=== PATIENT | female | born 1980 | race Caucasian/White ===

== ENCOUNTER 2024-07-14 08:53 | Emergency (ER) | payer OTHER, SELFPAY ==
[2024-07-14 09:01] VITALS: BP 126/82; PULSE 77; RESP 20; TEMP 36.9; O2SAT 96; BMI 38.4
--- NOTE | 2024-07-14 09:21 | ED_ITS ---
HPI - General Adult General Time Seen by Provider: 09:21 Date Seen: 07/14/24 Chief complaint: Headache/Migraine Stated complaint: Right eye issues, and nasty headache right side Time Seen by Provider: 07/14/24 09:19 Source: patient and RN notes reviewed Mode of arrival: ambulatory Limitations: no limitations History of Present Illness HPI narrative: This 44-year-old female is coming into the ER of her own accord with concern of a headache. She is tearful, most definitely upset, states she is worried she is dying on my initial questioning of her. She notes that she saw an eye doctor, was told she had a subconjunctival hematoma. She since last night though has had a right-sided headache. She states she can draw lying basically through the head. There is some neck pain with this. There is likely some photophobia. She does not have a history of headaches or migraines before. Her subconjunctival hematoma is mildly uncomfortable. There is no visual change, no blurry or double vision. She has no loss of coordination of extremities, was ambulatory in here. She does state though that her 2nd and 3rd fingers in her left hand have felt twitchy today. This headache involved last night sometime after 6:00 p.m.. There is no trauma, no fevers or chills. She denies any recent illness with any cough or cold symptoms. She did have COVID about 2 pedrito hs ago. She does not have a personal history of cancer but she has a cousin with a glioblastoma and there is colon cancer. Related Data Home Medications ?Medication ?Instructions ?Recorded ?Confirmed thyroid (pork) 120 mg tablet 120 mg PO DAILY 12/06/22 04/10/24 ([place] Thyroid) thyroid (pork) 30 mg tablet 30 mg PO DAILY 12/06/22 04/10/24 ([place] Thyroid) Allergies Allergy/AdvReac Type Severity Reaction Status Date / Time No Known Drug Allergies Allergy Verified 07/14/24 09:52 Review of Systems Status of ROS: Reports: 6 or more systems reviewed and unremarkable except as noted in History and below [facility] Medical History Staph infection ?B95.8 - Unspecified staphylococcus as the cause of diseases classified elsewhere (ICD-10) Social History Smoking Status: Never smoker Do you use any of these nicotine containing products: None How often do you have a drink containing alcohol: never How often do you have six or more drinks on one occasion: Never AUDIT-C Alcohol total score: 0 Non-prescribed substance use: denies use Exam Const: Vital Signs, click to edit/add: Vital Signs - 24 hr 07/14/24 09:01 07/14/24 11:21 Temperature 98.5 F Pulse Rate [Pulse Oximeter] 77 62 Respiratory Rate 20 18 Blood Pressure [Ri ght Upper Arm] 126/82 121/76 Pulse Oximetry 96 97 Oxygen Delivery Me thod Room Air Room Air This 44yo female is tearful and seems anxious. Pupils are equal round, conjugate gaze. She has a subconjunctival hematoma on the right outer portion. Symmetrical facial function, speech is normal. TMs canals are normal. Neck is supple, no masses or adenopathy. Lungs clear, good air entry, no wheezing or crackles. CV regular rate and rhythm, no murmur. Abdomen is soft, nontender, nondistended, do not feel any masses. Strength is 5/5 and symmetric, patient was ambulatory into the ED of her own accord. I note no twitching or tremors of her extremities. She has normal light touch sensation. Documenting provider has reviewed patient's vital signs: yes Course Course ED Course: This is a 44-year-old female with no history of any concerning headaches with a severe right-sided headache, some right-sided neck pain with this. She is quite distressed about her symptoms. I did review with her that I do not feel the subconjunctival hematoma is indicative of any underlying pathology, they may just have presented together. I do not feel that there is anything further to do for her subconjunctival hematoma other than observation, do agree with eye doctor on that. However, for her headache, did discuss with her that I his certainly can work that up further. We discussed neuro imaging with doing the head CT noncontrast as well as doing the CT angiogram to ensure no dissection or bleeding. She would like to proceed with that. She did drive herself here but can get a ride. We will proceed with basic labs including inflammatory markers. She will be given Benadryl and Reglan to help with pain management of her headache. Will proceed with IV Toradol if needed if we get clearance with her head imaging. Will recheck COVID as headaches with COVID are very well known entity. Reevaluation(s) Time of Reevaluation #1: 10:53 Reevaluation #1: Patient reports she is relaxed. She seems much calmer now. It sounds as if she started to get some anxiety with injection of the Benadryl, did not receive all of that. Still has some headache. Will proceed with Toradol. Have reviewed her CT imaging is not showing any evidence of any tumors, no acute intracranial pathology, no bleeding. We have reviewed that her CBC, comprehensive metabolic panel, C-reactive protein are all normal. Sed rate is still pending at this time. Negative triple viral swab which does include a negative COVID. Time of Reevaluation #2: 11:38 Reevaluation #2: Patient is reporting she is sleepy, reviewed with her that is from medicines we gave her. She is so much more calm right now. Her sed rate has come back normal at 7, discussed that this makes such entities such as temporal arteritis extremely unlikely. I do believe that the subconjunctival hematoma really does not have anything to do with her headache. She states the eye doctor told her that it would get worse before it gets better. We did discuss that if she does need some ibuprofen for her headache that she could take it but that could increase the risk of the extension of the subconjunctival hematoma. She certainly can take Tylenol without any issue. Vital Signs Vital signs: Initial Vital Signs Temperature 98.5 F 07/14/24 09:01 Temperature Source Temporal Artery Scan 07/14/24 09:01 Pulse Rate 77 07/14/24 09:01 Pulse Rhythm Regular 07/14/24 09:01 Respiratory Rate 20 07/14/24 09:01 Blood Pressure 126/82 07/14/24 09:01 Blood Pressure Mean 96 07/14/24 09:01 Blood Pressure Position Supine 07/14/24 09:01 Pulse Oximetry 96 07/14/24 09:01 Oxygen Delivery Method Room Air 07/14/24 09:01 Vital Signs Temperature 98.5 F 07/14/24 09:01 Pulse Rate 77 07/14/24 09:01 Respiratory Rate 20 07/14/24 09:01 Blood Pressure 126/82 07/14/24 09:01 Pulse Oximetry 96 07/14/24 09:01 Oxygen Delivery Method Room Air 07/14/24 09:01 Temperature 98.5 F 07/14/24 09:01 Pulse Rate 62 07/14/24 11:21 Respiratory Rate 18 07/14/24 11:21 Blood Pressure 121/76 07/14/24 11:21 Pulse Oximetry 97 07/14/24 11:21 Oxygen Delivery Method Room Air 07/14/24 11:21 Medications Administered Medications: Discontinued Medications Generic Name Dose Route Start Last Admin Trade Name Freq PRN Reason Stop Dose Admin Diphenhydramine HCl 25 mg 07/14/24 09:30 07/14/24 10:03 Diphenhydramine 50 Mg/Ml Inj IVP 07/14/24 09:31 25 mg ONCE ONE Administration Metoclopramide HCl 10 mg/ 102 mls @ 306 mls/hr 07/14/24 09:30 07/14/24 10:30 Sodium Chloride IVPB 07/14/24 09:31 Infused ONCE ONE Infusion Ketorolac Tromethamine 15 mg 07/14/24 10:53 07/14/24 11:21 Ketorolac 15 Mg/Ml Inj IVP 07/14/24 10:54 15 mg ONCE ONE Administration Medical Decision Making Lab Data Labs: Lab Results 07/14/24 Range/Units 09:42 WBC 5.67 (4.50-11.00) K/uL RBC 4.26 (4.00-5.20) m/uL Hgb 13.1 (12.0-16.0) gm/dL Hct 39.5 (33.0-51.0) % MCV 93 (80-100) fL MCH 31 (26-34) pg MCHC 33 (32-36) gm/dL RDW Coeff of Sara 12.1 (11.5-15.5) % Plt Count 233 (140-440) K/uL Neut % (Auto) 60.7 (42.0-72.0) % Lymph % (Auto) 24.7 (20-44) % [place]idan % (Auto) 6.9 (0.0-11.0) % Eos % (Auto) 6.9 (0.0-7.0) % Baso % (Auto) 0.4 (0.0-3.0) % Neut # (Auto) 3.45 (1.7-7.0) K/uL Lymph # (Auto) 1.40 (0.90-2.90) K/uL Sheridan # (Auto) 0.40 (0.00-0.90) K/UL Eos # (Auto) 0.39 (0.00-0.50) K/uL Baso # (Auto) 0.02 (0.00-0.30) K/uL Abs Immat Gran (auto) 0.02 (0.00-0.30) K/uL Imm/Tot Granulo (auto) 0.4 % ESR 7 (2-20) mm/hr Sodium 137 (135-149) mmol/L Potassium 4.0 (3.6-5.1) mmol/L Chloride 105 (96-114) mmol/L Carbon Dioxide 24 (20-32) mmol/L Anion Gap 8 (7-15) mEq/L BUN 17 (5-24) mg/dL Creatinine 0.6 (0.5-1.5) mg/dL Estimated Creat Clear 102.25 Estimated GFR 113 ml/min Glucose 106 (60-115) mg/dL Lactate 1.8 (0.5-1.9) mmol/L Calcium 9.3 (8.4-10.6) mg/dL C-Reactive Protein < 0.5 L (0.5-1.0) mg/dL SARS-CoV-2 (PCR) Negative SARS-CoV-2 (Negative) Influenza Type A (PCR) Negative PCR FLU A (Negative) Influenza Type B (PCR) Negative PCR FLU B (Negative) RSV (PCR) Negative PCR RSV (Negative) Imaging Data CT scan - head: Attestation: I have reviewed the pertinent imaging results. Radiologist's impression: Patient: MEHDI LOUIE Facility:?[facility] Patient ID:?[id number] Site Patient ID:?[id number]. Site :?1980 Study:?CT-Head WITHOUT-07/14/2024 10:05:32 AM Ordering Physician:?Elliot Ramírez Final Report: Indication: New severe right-sided headache Technique: Volumetric multidetector CT images of the head were obtained without the administration of low osmolar intravenous contrast. Comparison: None available Findings: There is no intra-axial or extra-axial fluid collection. There is no mass effect or midline shift. The ventricles and sulci are normal in size and position for age. There is minimal chronic small vessel disease change within the subcortical white matter. Otherwise, the brain parenchyma is preserved in attenuation and hair-white differentiation. The orbits and their contents are grossly within normal limits. The bony calvarium is grossly intact. There is bubbly secretion within the paranasal sinuses right greater than left with moderate polypoid mucosal thickening. The mastoid air cells are well aerated. Impression: Mild chronic small vessel disease changes of the white matter without acute intracranial abnormality. Please note that all CT scans at this facility use dose modulation, iterative reconstruction, and/or weight-based dosing when appropriate to reduce radiation dose to as low as reasonably achievable. Dictated by Pool Choi MD @ 07/14/2024 10:16:07 AM (Electronic Signature) CT- Other: Attestation: I have reviewed the pertinent imaging results. Radiologist's impression: Patient: MEHDI PUMPBOSTON Facility:?[facility] Patient ID:?[id number] Site Patient ID:?[id number]. Site :?1980 Study:?CT-Neck Angio W/ 95CC ISOVUE 370-07/14/2024 10:06:37 AM Ordering Physician:Darvin Ramírez Preliminary Report: The thoracic aorta is nonaneurysmal. Patent common carotid arteries. The carotid bifurcations are grossly within normal limits. Patent distal internal carotid arteries. Codominant vertebral arteries, patent throughout their lengths. Dictated by Pool Choi MD @ 07/14/2024 10:22:28 AM Read by:?Pool Choi MD @07/14/2024 10:23:59 AM Patient: MEHDI PUMPER Facility:?[facility] Patient ID:?[id number] Site Patient ID:?[id number]. Site :?1980 Study:?CT-Head Angio W/ 95CC ISOVUE 370-07/14/2024 10:07:01 AM Ordering Physician:?Elliot Desiree Preliminary Report: The skull base internal carotid arteries are patent. Patent anterior cerebral and middle cerebral arteries. Codominant vertebral arteries with patent basilar artery. Patent bilateral posterior cerebral arteries with minimal hypoplasia of the P1 segments and patent bilateral posterior communicating arteries. Dictated by Pool Choi MD @ 07/14/2024 10:28:27 AM Read by:?Pool Choi MD @07/14/2024 10:28:29 AM Discharge Plan Discharge Clinical Impression: Headache Qualifiers: Headache type: unspecified Headache chronicity pattern: acute headache Intractability: not intractable Qualified Code(s): R51.9 - Headache, unspecified Subconjunctival hematoma Qualifiers: Laterality: right Qualified Code(s): H11.31 - Conjunctival hemorrhage, right eye Instructions: Acute Headache (ED) Additional Instructions: Recommend going home to rest. Need to drink plenty of fluids to stay hydrated. Can take Tylenol 1000 mg up to 3 times a day for residual headache. It is fine to try some ibuprofen per bottle directions if needed for headache control. It is possible that ibuprofen use could increase the risk of extension of the subconjunctival hematoma. Your head CT imaging and vascular imaging of the head and neck, labs are all reassuring that there is no concerning process going on at this time. Work note for today is provided. Activity Level: Activity as Tolerated Discharge Diet: Regular Prescriptions: No Action thyroid (pork) [[place] Thyroid] 120 mg tablet 120 mg PO DAILY thyroid (pork) [[place] Thyroid] 30 mg tablet 30 mg PO DAILY Follow Up/Referrals: Provider,Not a Local [Primary Care Provider] - Stand Alone Forms: [employer] Info Instructions
--- NOTE | 2024-07-14 09:30 | CRLHL7_ITS ---
For Patients: As a result of the Century Cures Act, medical imaging exams and procedure reports are released immediately into your electronic medical record. You may view this report before your referring provider. If you have questions, please contact your health care provider. Indication: New severe right-sided headache Technique: Volumetric multidetector CT images of the head were obtained without the administration of low osmolar intravenous contrast. Comparison: None available Findings: There is no intra-axial or extra-axial fluid collection. There is no mass effect or midline shift. The ventricles and sulci are normal in size and position for age. There is minimal chronic small vessel disease change within the subcortical white matter. Otherwise, the brain parenchyma is preserved in attenuation and hair-white differentiation. The orbits and their contents are grossly within normal limits. The bony calvarium is grossly intact. There is bubbly secretion within the paranasal sinuses right greater than left with moderate polypoid mucosal thickening. The mastoid air cells are well aerated. Impression: Mild chronic small vessel disease changes of the white matter without acute intracranial abnormality. Please note that all CT scans at this facility use dose modulation, iterative reconstruction, and/or weight-based dosing when appropriate to reduce radiation dose to as low as reasonably achievable. Dictated by Pool Choi MD @ 07/14/2024 10:16:07 AM (Electronically Signed)
--- NOTE | 2024-07-14 09:32 | CRLHL7_ITS ---
For Patients: As a result of the Century Cures Act, medical imaging exams and procedure reports are released immediately into your electronic medical record. You may view this report before your referring provider. If you have questions, please contact your health care provider. CLINICAL HISTORY: Severe right-sided neck pain and headache. TECHNIQUE: Standard helical CT image acquisition through the head following the administration of intravenous contrast was performed. 3D and MIP reconstructions were performed at a separate workstation and permanently archived. COMPARISON: None available. FINDINGS: No intracranial proximal large vessel occlusion or flow-limiting luminal stenosis. No evidence of cerebral aneurysm. No findings to suggest an arterial-venous shunting lesion. The major dural venous sinuses and deep venous system are patent. IMPRESSION: No intracranial proximal large vessel occlusion, flow-limiting luminal stenosis, or cerebral aneurysm. Please note that all CT scans at this facility use dose modulation, iterative reconstruction, and/or weight-based dosing when appropriate to reduce radiation dose to as low as reasonably achievable. Dictated by Ender Sarmiento MD @ 07/14/2024 11:29:00 AM (Electronically Signed)
--- NOTE | 2024-07-14 09:32 | CRLHL7_ITS ---
For Patients: As a result of the Century Cures Act, medical imaging exams and procedure reports are released immediately into your electronic medical record. You may view this report before your referring provider. If you have questions, please contact your health care provider. CLINICAL HISTORY: Right-sided neck pain with severe headache. TECHNIQUE: Standard helical CT image acquisition through the neck was performed after intravenous contrast bolus enhancement. 3D and MIP reconstructions were performed at a separate workstation and permanently archived. COMPARISON: None available. FINDINGS: The origins of the great vessels from the aortic arch are patent. The common carotid arteries are patent. No significant luminal stenoses of the proximal ICAs by NASCET criteria. The more distal cervical segments of the ICAs are patent. The origins and cervical segments of the vertebral arteries are patent. IMPRESSION: Patent cervical arterial vasculature without hemodynamically significant luminal stenosis. Please note that all CT scans at this facility use dose modulation, iterative reconstruction, and/or weight-based dosing when appropriate to reduce radiation dose to as low as reasonably achievable. Dictated by Ender Sarmiento MD @ 07/14/2024 11:26:13 AM (Electronically Signed)
[2024-07-14 09:51] LABS: Basophils Absolute Auto 0.02 K/uL (0.00-0.30); Basophils Percent Auto 0.4 % (0.0-3.0); Eosinophils Absolute Auto 0.39 K/uL (0.00-0.50); Eosinophils Percent Auto 6.9 % (0.0-7.0); Hematocrit 39.5 % (33.0-51.0); Hemoglobin* 13.1 gm/dL (12.0-16.0); Immature Granulocytes Abs Auto 0.02 K/uL (0.00-0.30); Immature Granulocytes Pct Auto 0.4 %; Lymphocytes Percent Auto 24.7 % (20-44); Mean Corpuscular HGB Conc 33 gm/dL (32-36); Mean Corpuscular Hemoglobin 31 pg (26-34); Mean Corpuscular Volume 93 fL (80-100); Monocytes Percent Auto 6.9 % (0.0-11.0); Neutrophils Absolute Auto 3.45 K/uL (1.7-7.0); Neutrophils Percent Auto 60.7 % (42.0-72.0); Platelet Count* 233 K/uL (140-440); RDW Coefficient of Variation % 12.1 % (11.5-15.5); Red Blood Count 4.26 m/uL (4.00-5.20); White Blood Count* 5.67 K/uL (4.50-11.00)
[2024-07-14 09:52] LABS: Lactate* 1.8 mmol/L (0.5-1.9)
[2024-07-14 10:00] LABS: Slide Review Reflex No
[2024-07-14] MEDS: diphenhydrAMINE 50 MG/ML inj 25 MG IVP (10:03)
[2024-07-14] MEDS: METOCLOPRAMIDE HCL 10 MG in 0.9 % SODIUM CHLORIDE 100 ml 100 ML 306 MG IVPB (10:04)
[2024-07-14 10:12] LABS: Chloride* 105 mmol/L (96-114); Sodium* 137 mmol/L (135-149)
[2024-07-14 10:15] LABS: Creatinine* 0.6 mg/dL (0.5-1.5); Est. Creatinine Clearance* 102.25; Estimated Glomerular Filt Rate 113 ml/min
[2024-07-14 10:16] LABS: Anion Gap 8 mEq/L (7-15); Blood Urea Nitrogen* 17 mg/dL (5-24); Calcium* 9.3 mg/dL (8.4-10.6); Carbon Dioxide* 24 mmol/L (20-32); Glucose* 106 mg/dL (60-115)
[2024-07-14 10:23] LABS: C Reactive Protein* < 0.5 mg/dL (0.5-1.0)
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
--- OUTSIDE RECORDS SUMMARY | 2024-07-14 10:24 | XMS_ITS | Clinical Summary ---
Author Organization [facility] Address [place], [place] [address] Care Team Providers Care Web Editor Name Role Phone Clinic, No Pcp Or Primary Care Provider Unavaila ble Allergies Active Allergy Reactions Criticality Noted Date Comments Venom-Honey Bee Rash 01/12/2023 Medications Medication Sig Dispensed Refills Start Date End Date Status EPINEPHrine (EPIPEN) 0.3 mg/0.3 mL (1:1,000) injection Inject 0.3 mg intramuscular one time if needed for Allergic Reaction for up to 1 dose. 1 Each 2 05/24/2014 Active lidocaine 5% (LIDODERM) 5 % patch 11/10/2018 Active ARMOUR THYROID 30 mg tablet TAKE ONE TABLET DAILY ALONG WITH A 120 MG TABLET FOR TOTAL DOSE OF 150 MG PER DAY 10/18/2019 Active thyroid (ARMOUR THYROID) 120 mg tablet Take one tablet daily along with a 30 mg tablet for total dose of 150 mg per day 10/18/2019 Active Active Problems Problem Noted Date Diagnosed Date Unspecified hypothyroidism 04/04/2009 Encounters Date Type Department Care Team Description 05/10/2024 2:10 PM CDT Office Visit [facility] [address] [place] [address] Booker Burger DO Derm Problem (Blister/red on back) 05/10/2024 Travel 05/10/2024 Nurse Triage [facility] [address] [place] [address] [facility] Derm Problem from Last 3 Months Immunizations Name Administration Dates Next Due AMB Influenza, IIV4 PF (=>6 mos Flulaval,Fluzone Fluarix)(Flu Clinic Only) 06/09/2014 Influenza Virus, Unspecified 08/16/2007,08/16/20 07 Influenza, IIV3 (Age >=3 years) 07/07/2015,06/11 Influenza, IIV4 06/17/2021,06/09/2014 Influenza, IIV4 (=>6mos) MDV 07/08/2020 Td (Age >=7 Years) 04/06/1997,02/04/1997 Tdap 11/17/2012 Family History Medical History Relation Name Comments Diabetes Father Cancer-colon Maternal Grandfather colon c ancer Other Maternal Grandmother Multipl e Sclerosis Other Mother rheumatoid arth ritis Psychiatric illness Mother depressi on Diabetes Paternal Grandfather and HIV positive; Heroin user. Alzheimer's disease Paternal Grandmother Diabetes Paternal Uncle 2 Thyroid Disease Sister 1 Grave's Dise ase Other Sister 2 Cerebral Palsy Anesthesia Problem No Family History Blood Disease No Family History Relation Name Status Comments Father Alive Maternal Grandfather Maternal Grandmother Mother Alive Paternal Grandfather Paternal Grandmother Alive Paternal Uncle 1 car acciden t Paternal Uncle 2 Sister 1 Alive Sister 2 Alive Social History Tobacco Use Types Packs/Day Years Used Date Smoking Tobacco: Never Passive Smoke Exposure: Never Smokeless Tobacco: Never Tobacco Cessation:Counseling Given: Not Answered Comments:2007 Quit Alcohol Use Standard Drinks/Week Comments Not Currently 0 (1 standard drink = 0.6 oz pur e alcohol) 3 per month PHQ-2 Answer Date Recorded PHQ-2 Score 0 12/01/2018 Social Connections Answer Date Recorded Do you often feel lonely or isolated from those around you? 0 05/10/2024 Financial Resource Strain Answer Date R ecorded Difficulty of Paying Living Expenses 3 05/10/2024 Difficulty of Paying Living Expenses Not on file 05/10/2024 Food Insecurity Answer Date Recorded Do you worry your food will run out before you are able to buy more? 1 05/10/2024 Transportation Needs Answer Date Record ed Does lack of transportation keep you from medica l appointments? 1 05/10/2024 Does lack of transportation keep you from work, meetings or getting things that you need? 1 05/10/2024 Housing Stability Answer Date Recorded What is your housing situation today? 1 05/10/2024 Sex and Gender Information Value Date Recorded Sex Assigned at Not on file Gender Identity Not on file Sexual Orientation Not on file Obstetrics History Para Term AB IAB SAB Ectopic Multiple Livin g Live Births 2 1 1 1 1 1 Date Outcome GA Total Labor Labor/2nd/3rd Weight Sex Type Anes PTL Tiffanie A1 A5 Name Clin AB 09/27 Term M CS-Un spec Living Royce Last Filed Vital Signs Vital Sign Reading Time Taken Comments Blood Pressure 114/80 05/10/2024 2:19 PM CDT Pulse 78 05/10/2024 2:19 PM CDT Temperature 36.7 ??C (98.1 ??F) 01/14/2023 9:09 AM CD T Respiratory Rate 16 01/14/2023 9:09 AM CDT Oxygen Saturation 96% 05/10/2024 2:19 PM CDT Inhaled Oxygen Concentration - - Weight 95.7 kg (211 lb) 01/12/2023 11:16 AM CDT Height 162.6 cm (5' 4) 01/12/2023 11:16 AM CDT Body Mass Index 36.22 01/12/2023 11:16 AM CDT Plan of Treatment Health Maintenance Due Date Last Done Comments HIV for age 15-65 1994 Hepatitis C screening for age 18-79 1997 Pap test for age 21-65 09/06/2015 5, 09/06/2013, 09/06/2012 [facility] Depression screening for age 12+ 12/02/2019 12/01/2018, 11/24/2016 Tetanus booster 11/17/2022 11/17/2012, 09/1996, 02/04/1997 BMI (ht and wt on same day) for age 18+ 01/13/2024 01/12/2023, 07/24/2019, 01/31/2019, Additional history exists Colonoscopy through age 75 2024 Lipids for age 45-75 2024 11/14/2016, 11/22/19 13 Mammogram for age 45-75 2024 COVID-19 vaccine series ( season) 2024 08/02/2021, 01/10/2021, 12/20/2020 Influenza for age 9-49 05/07/2024 , 07/08/2020, 07/07/2015, Additional history exists Tdap Completed 11/17/2012 Pneumococcal series for age 6-64 Aged Out No longer eligible based on patient's age to complete this topic Procedures Procedure Name Priority Date/Time Associated Diagnosis Comments LIPID PANEL W REFLEX MEASURED LDL Routine 11/14/2016 9:06 AM TOP COLLAR BASTER Lipid screening from Last 3 Months or Most Recently Relevant to Health Maintenance Results * LIPID PANEL W REFLEX MEASURED LDL (11/14/2016 9:06 AM TOP COLLAR BASTER) CHOLESTEROL,TOTAL 120 100 - 199 mg/dL 11/14/2016 9:32 AM TOP COLLAR BASTER [facility] TRIGLYCERIDES 115 <150 mg/dL 11/14/2016 9:32 AM TOP COLLAR BASTER [facility] HDL CHOLESTEROL 59 >40 mg/dL 7 9:32 AM TOP COLLAR BASTER [facility] NON-HDL CHOLESTEROL 61 <145 mg/dl 11/14/2016 9:32 AM TOP COLLAR BASTER [facility] CHOL/HDL RATIO 2.03 <4.50 11/14/2016 9:32 AM TOP COLLAR BASTER [facility] LDL CHOLESTEROL 38 <=130 mg/dL 11/14/2016 9:32 AM TOP COLLAR BASTER [facility] PATIENT STATUS FASTING 11/14/2016 9:32 AM [facility] Blood BLOOD SPECIMEN / Unknown Venipuncture / Unknown 11/14/2016 9:06 AM TOP COLLAR BASTER 11/14/2016 9:06 AM TOP COLLAR BASTER Mee Moya MD CHEMISTRY [facility] [address] [place] [address], from Last 3 Months or Most Recently Relevant to Health Maintenance Care Teams Web Editor Relationship Specialty Start Date End Date Clinic, No Pcp Or . PCP - General 11/15/19
--- OUTSIDE RECORDS SUMMARY | 2024-07-14 10:24 | XMS_ITS | Encounter Summary ---
Author Organization [email or web address] Address [address], [place] [address] Care Team Providers Care Hvac Services Professional Name Role Phone Found, No Pcp MD Primary Care Provider Unavailab le Reason for Visit * Reason Comments Refill ARMOUR THYROID 120 M G tablet [Pharmacy Med Name: THYROID (ARMOUR) 2GR (120MG) TABS] Encounter Details Date Type Department Care Team (Late st Contact Info) Description 06/08/2024 Refill [place] [id number] [place] [address]. [place], [place] [id number] Ryan Zamora MD [address] [place] [address] [id number] Refill (ARMOUR THYROID 120 MG tablet [Pharmacy Med Name: THYROID (ARMOUR) 2GR (120MG) TABS]) Social History Tobacco Use Types Packs/Day Years Used Date Smoking Tobacco: Never Smokeless Tobacco: Never Alcohol Use Standard Drinks/Week Comments Yes 0 (1 standard drink = 0.6 oz pur e alcohol) monthly or less PHQ-2 Answer Date Recorded PHQ-2 Score 0 12/08/2023 Sex and Gender Information Value Date Recorded Sex Assigned at Not on file Gender Identity Not on file Sexual Orientation Not on file documented as of this encounter Nursing Notes * Leonidas Frank Xrwcomm - 06/08/2024 8:43 AM CDT ARMOUR THYROID 120 MG tablet [Pharmacy Med Name: THYROID (ARMOUR) 2GR (120MG) TABS] Hypothyroidism -> The requested strength (120 mg oral tablet) was last ordered on 02/29/2024. The patient is taking 30 mg tab as of 02/29/2024. -> The medication is active at more than one strength (120 mg on 02/29/2024, 30 mg on 02/29/2024). -> Unable to determine if sig has changed, review required. -> An office visit is overdue (performed over 16 months ago, required every 12 months). Last qualifying visit: 02/11/2023 (in [facility] END[facility]OLOGY) Next scheduled visit: 06/08/2024 (in [facility]OLOG[facility]) Last ordered by RYAN ZAMORA: 02/29/2024 (100 days ago) QTY: 90, Refills: 0, Sig: take 1 tablet by mouth every day along with a 30mg tablet (changed) TSH: 3.56 mIU/L on 12/08/2023 [email or web address] Embedded Refills, Reference: [id number], 06/08/2024 8:43:50 AM CDT, Pool: MARU PALACIOS ([id number]) * Leonidas Frank - 06/08/2024 8:43 AM CDT The following lab order(s) may be associated with the following Patient Result Comment (Entered by Ryan Zamora MD at 12/14/2023 7:56 PM): TSH, SENSITIVE This is okay. The T3 is MUCH higher in [facility]our thyroid than the T4 is compared to what our bodies make, so that is reflected in these labs. 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
--- OUTSIDE RECORDS SUMMARY | 2024-07-14 10:24 | XMS_ITS ---
Author Organization [facility] Address [address] [place] [address] Care Team Providers Care Tenter Feeder Name Role Phone System, Provider Not In Primary Care Provider Un available Transplant Episode Kidney Potential Donor [facility] ([place], [place]) - [facility] Referred on 01/05/2024 Marked as Ineligible on 04/27/2024 Reason: Recipient Reason Kidney CoordinatorYvonne Corona RN Phone: N/A Fax: N/A Email: N/A Care Team Name Role Phone Fax Email Yvonne Corona RN Kidney Coordinator N/A N/A N/A Events Pre-Donation Referred: 01/05/2024
--- OUTSIDE RECORDS SUMMARY | 2024-07-14 10:24 | XMS_ITS | Referral Summary ---
Author Organization [facility] Address [address] [place] [address] Care Team Providers Care Medical Collector Name Role Phone System, Provider Not In Primary Care Provider Un available Allergies Active Allergy Reactions Criticality Noted Date Comments Bee Venom Rash Low 01/12/2023 Medications cyclobenzaprine (FLEXERIL) 5 MG tablet Take 5-10 mg by mouth 4 Active thyroid (ARMOUR) 120 MG tablet TAKE 1 TABLET BY MOUTH EVERY DAY ALONG WITH A 30MG TABLET 3 Active thyroid (ARMOUR) 30 MG tablet Take 1 tablet by mouth daily 3 Active ibuprofen (ADVIL/MOTRIN) 200 MG tabletIndication s:S/P hysterectomy Take 4 tablets (800 mg) by mouth every 6 hours as needed for other (mild and/or inflammatory pain) 4 Active acetaminophen (TYLENOL) 325 MG tabletIndication s:S/P hysterectomy Take 3 tablets (975 mg) by mouth every 6 hours as needed for mild pain 4 Active oxyCODONE (ROXICODONE) 5 MG tabletIndication s:S/P hysterectomy Take 1-2 tablets (5-10 mg) by mouth every 4 hours as needed for moderate to severe pain 12 tablet 4 Active Active Problems Problem Noted Date Diagnosed Date Passive suicidal ideations 07/20/2017 Social History Tobacco Use Types Packs/Day Years Used Date Smoking Tobacco: Never Smokeless Tobacco: Never Alcohol Use Standard Drinks/Week Comments Yes 0 (1 standard drink = 0.6 oz pur e alcohol) rare Adolescent Education Answer Date Record ed Getting School Help Needed Not on file 12/20 Comments Unknown Sex and Gender Information Value Date Recorded Sex Assigned at Not on file Legal Sex Female 4:49 AM MILLINERY COPYIST Gender Identity Not on file Sexual Orientation Not on file Last Filed Vital Signs Vital Sign Reading Time Taken Comments Blood Pressure 102/70 12/21/2023 12:02 PM CDT Pulse 74 12/21/2023 12:02 PM CDT Temperature 35.9 ??C (96.6 ??F) 12/21/2023 12:02 PM C DT Respiratory Rate 10 12/21/2023 12:02 PM CDT Oxygen Saturation 98% 12/21/2023 12:02 PM CDT Inhaled Oxygen Concentration - - Weight 98.5 kg (217 lb 1.6 oz) 12/21/2023 5:49 A M CDT Height 162.5 cm (5' 3.98) 07/20/2017 7:00 PM CS T Body Mass Index 37.29 07/20/2017 7:00 PM MILLINERY COPYIST Plan of Treatment Not on file Procedures Procedure Name Priority Date/Time Associated Diagnosis Comments COMPREHENSIVE METABOLIC PANEL Routine 07/21/2017 7:51 AM MILLINERY COPYIST TSH WITH FREE T4 REFLEX Routine 07/21/2017 7:51 AM MILLINERY COPYIST LIPID REFLEX TO DIRECT LDL PANEL Routine 07/21/2017 7:51 AM MILLINERY COPYIST from Last 3 Months or Most Recently Relevant to Health Maintenance Results * (ABNORMAL) TSH with free T4 reflex (07/21/2017 7:51 AM MILLINERY COPYIST) TSH 5.82(H) 0.40 - 4.00 mU/L 07/21/2017 9:00 AM MILLINERY COPYIST [facility] Blood specimen (specimen) 07/21/2017 7:51 AM MILLINERY COPYIST 07/21/2017 7:55 AM MILLINERY COPYIST us Rose Garsia APRN HOUSE PRINCIPAL LAB - BLOOD ORDER KRYSTAL Final Result [facility] [address] [place] [address] * Lipid panel reflex to direct LDL (07/21/2017 7:51 AM MILLINERY COPYIST) Cholesterol 137 <200 mg/dL 07/21/2017 9:00 AM MILLINERY COPYIST [facility] Triglycerides 97 <150 mg/dL 07/21/2017 9:00 AM [facility] HDL Cholesterol 76 >49 mg/dL 7 9:00 AM [facility] LDL Cholesterol Calculated 42 <100 mg/dL 07/21/2017 9:00 AM [facility] Comment:Desirable: <100 mg/d l Non HDL Cholesterol 61 <130 mg/dL 07/21/2017 9:00 AM [facility] Blood specimen (specimen) 07/21/2017 7:51 AM MILLINERY COPYIST 07/21/2017 7:55 AM [facility] us Rose Garsia WAITER/WAITRESS COUNTER HOUSE PRINCIPAL LAB - BLOOD ORDER KRYSTAL Final Result Performing Organization Address City/State/[facility] Co de Phone Number [facility] [address] [place] [address] * (ABNORMAL) Comprehensive metabolic panel (07/21/2017 7:51 AM MILLINERY COPYIST) Sodium 139 133 - 144 mmol/L 07/21/2017 9:00 AM [facility] Potassium 4.2 3.4 - 5.3 mmol/L 07/21/2017 9:00 AM [facility] Chloride 107 94 - 109 mmol/L 07/21/2017 9:00 AM [facility] Carbon Dioxide 23 20 - 32 mmol/L 07/21/2017 9:00 AM [facility] Anion Gap 9 3 - 14 mmol/L 07/21/2017 9:00 AM [facility] Glucose 126(H) 70 - 99 mg/dL 07/21/2017 9:00 AM [facility] Urea Nitrogen 12 7 - 30 mg/dL 07/21/2017 9:00 AM [facility] Creatinine 0.75 0.52 - 1.04 mg/dL 07/21/2017 9:00 AM [facility] GFR Estimate 86 >60 mL/min/1.7 m2 07/21/2017 9:00 AM [facility] Comment:Non GFR Calc GFR Estimate If Black >90 >60 mL/min/1.7 m2 07/21/2017 9:00 AM [facility] Comment: GFR Calc Calcium 8.6 8.5 - 10.1 mg/dL 07/21/2017 9:00 AM [facility] Bilirubin Total 0.4 0.2 - 1.3 mg/dL 07/21/2017 9:00 AM [facility] Albumin 3.6 3.4 - 5.0 g/dL 07/21/2017 9:00 AM [facility] Protein Total 7.3 6.8 - 8.8 g/dL 07/21/2017 9:00 AM [facility] Alkaline Phosphatase 39(L) 40 - 150 U/L 07/21/2017 9:00 AM [facility] ALT 23 0 - 50 U/L 07/21/2017 9:00 AM [facility] AST 15 0 - 45 U/L 07/21/2017 9:00 AM [facility] Blood specimen (specimen) 07/21/2017 7:51 AM MILLINERY COPYIST 07/21/2017 7:55 AM [facility] Rose Garsia APRN HOUSE PRINCIPAL LAB - BLOOD ORDER KRYSTAL Final Result Performing Organization Address City/State/[facility] Co de Phone Number [facility] [address] [place] [address] from Last 3 Months or Most Recently Relevant to Health Maintenance Insurance [place] [employer]CIAL [facility] COMMERCIAL Advance Directives For more information, please contact: [phone] * Full Code (Latest Code Status on File) Date Activated Date Inactivated Comments 07/21/2017 9:45 AM 12/21/2023 5:37 AM * Full Code Date Activated Date Inactivated Comments 07/20/2017 8:30 PM 07/21/2017 9:45 AM Care Teams Medical Collector Relationship Specialty Start Date End Date System, Provider Not In PCP - General Clinic 01/05/24
--- OUTSIDE RECORDS SUMMARY | 2024-07-14 10:24 | XMS_ITS | Clinical Summary ---
Author Organization [facility] Address [address] [place] [address] Care Team Providers Care Spacecraft Systems Engineer Name Role Phone System, Provider Not In [...] Date Diagnosed Date Passive suicidal ideations 07/20/2017 Family History Medical History Relation Comments Substance Abuse Father Substance Abuse Mother Relation Status Comments Father Mother Social History Tobacco Use Types Packs/Day Years [...] on file Legal Sex Female 4:49 AM MORTAR MAKER Gender Identity Not on file Sexual Orientation [...] Body Mass Index 37.29 07/20/2017 7:00 PM MORTAR MAKER Plan of Treatment Health Maintenance Due Date Last Done Comments ADVANCE CARE PLANNING 1979 ANNUAL REVIEW OF HM ORDERS 1979 CT COLONOGRAPHY 1979 FIT 1979 FLEX SIG 1979 sDNA (Cologuard) 1979 COLONOSCOPY 1989 COLORECTAL CANCER SCREENING 1989 HIV SCREENING 1994 HEPATITIS C SCREENING 1997 HEPATITIS B IMMUNIZATION (1 of 3 - 19+ 3-dose series) 1998 TSH W/FREE T4 REFLEX 07/21/2018 07/21/2017, 07/21/20 17 GLUCOSE 07/21/2020 07/21/2017 YEARLY PREVENTIVE VISIT 06/17/2022 06/17/20 21, 05/25/2019, 05/06/2018, Additional history exists LIPID 07/21/2022 07/21/2017 PHQ-2 (once per calendar year) 2023 COVID-19 Vaccine ( season) 2024 08/02/2021, 01/10/2021, 12/20/2020 INFLUENZA VACCINE (#1) 2024 , 07/08/2020, 07/07/2015, Additional history exists MAMMO SCREENING 08/24/2025 08/24/2023, 12/0 05/2022, 06/23/2021, Additional history exists PAP 11/02/2026 11/02/2023, 11/02/2023 DTAP/TDAP/TD IMMUNIZATION (5 - Td or Tdap) 09/05/2033 09/05/2023, 11/17/2012, 04/06/1997, Additional history exists RSV VACCINE (1 - 1-dose 75+ series) 2054 HPV IMMUNIZATION Aged Out No longer e ligible based on patient's age to complete this topic MENINGITIS IMMUNIZATION Aged Out No l onger eligible based on patient's age to complete this topic Pneumococcal Vaccine: Pediatrics (0 to 5 Years) and At-Risk Patients (6 to 64 Years) Aged Out No longer eligible based on patient's age to complete this topic RSV MONOCLONAL ANTIBODY Aged Out No l onger eligible based on patient's age to complete this topic Procedures Procedure Name Priority Date/Time Associated Diagnosis Comments COMPREHENSIVE METABOLIC PANEL Routine 07/21/2017 7:51 AM MORTAR MAKER TSH WITH FREE T4 REFLEX Routine 07/21/2017 7:51 AM MORTAR MAKER LIPID REFLEX TO DIRECT LDL PANEL Routine 07/21/2017 7:51 AM MORTAR MAKER from Last 3 Months or Most Recently Relevant to Health Maintenance Results * (ABNORMAL) TSH with free T4 reflex (07/21/2017 7:51 AM MORTAR MAKER) TSH 5.82(H) 0.40 - 4.00 mU/L 07/21/2017 9:00 AM MORTAR MAKER [facility] Blood specimen (specimen) 07/21/2017 7:51 AM MORTAR MAKER 07/21/2017 7:55 AM MORTAR MAKER us Rose Garsia APRN AIR SUPPORT CONTROL OFFICER LAB - BLOOD ORDER KRYSTAL Final Result [facility] [address] [place] [address] * Lipid panel reflex to direct LDL (07/21/2017 7:51 AM MORTAR MAKER) Cholesterol 137 <200 mg/dL 07/21/2017 9:00 AM MORTAR MAKER [facility] Triglycerides 97 <150 mg/dL 07/21/2017 9:00 AM [facility] HDL Cholesterol 76 >49 mg/dL 7 9:00 AM [facility] LDL Cholesterol Calculated 42 <100 mg/dL 07/21/2017 9:00 AM [facility] Comment:Desirable: <100 mg/ dl Non HDL Cholesterol 61 <130 mg/dL 07/21/2017 9:00 AM [facility] Blood specimen (specimen) 07/21/2017 7:51 AM MORTAR MAKER 07/21/2017 7:55 AM [facility] us Rose Garsia GERONTOLOGICAL NURSE PRACTITIONER AIR SUPPORT CONTROL OFFICER LAB - BLOOD ORDER KRYSTAL Final Result Performing Organization Address City/State/[facility] Co de Phone Number [facility] [address] [place] [address] * (ABNORMAL) Comprehensive metabolic panel (07/21/2017 7:51 AM MORTAR MAKER) Sodium 139 133 - 144 mmol/L 07/21/2017 [...] CENTER Blood specimen (specimen) 07/21/2017 7:51 AM MORTAR MAKER 07/21/2017 7:55 AM MORTAR MAKER Rose Garsia APRN AIR SUPPORT CONTROL OFFICER LAB - BLOOD ORDER KRYSTAL Final Result Performing Organization Address City/State/[facility] de Phone Number [facility] [address] [place] [address] from Last 3 Months or Most Recently Relevant to Health Maintenance Insurance [employer] COMMERCIAL [facility] COMMERCIAL Advance Directives For more information, please contact: [phone] * Full Code (Latest Code Status on File) Date Activated Date Inactivated Comments 07/21/2017 9:45 AM 12/21/2023 5:37 AM * Full Code Date Activated Date Inactivated Comments 07/20/2017 8:30 PM 07/21/2017 9:45 AM Care Teams Spacecraft Systems Engineer Relationship Specialty Start Date End Date System, Provider Not In PCP - General Clinic 01/05/24
--- OUTSIDE RECORDS SUMMARY | 2024-07-14 10:24 | XMS_ITS | Encounter Summary ---
Author Organization [facility] Address [address] [place] [id number] Care Team Providers Care Compensator Worker Name Role Phone No Ref-Primary, Physician Primary Care Provider System, Provider Not In Primary Care Provider Un available Reason for Visit * Reason Onset Date Comments MH/CD Inpatient 07/20/2017 Encounter Details Date Type Department Care Team ([facility] st Contact Info) Description 07/20/2017 Telephone [facility] Behavioral Health Intake [address] [place] [address] Generic, Behavioral Intake, MH/CD Inpatient Social History Tobacco Use Types Packs/Day Years Used Date Smoking Tobacco: Never Assessed Comments Unknown Sex and Gender Information Value Date Recorded Sex Assigned at Not on file Legal Sex Female 4:49 AM NURSING DEPARTMENT CHAIRPERSON Gender Identity Not on file Sexual Orientation Not on file documented as of this encounter Miscellaneous Notes * Telephone Encounter - Chaya Barger - 07/20/2017 5:41 PM CST S. Received clinical from DEC capacity planning engineer at [facility] ED regarding 37 yo female with anxiety and depression B. Pt presents to ED with increasing anxiety and depression. Pt reports she is going through a divorce, two friends recently and 's day was a reminder of a friend who while in service. Pt had taken some days off from work and returned today but was unable to make it through the shift and went home. Pt reports she has had decreased appetite and difficulty sleeping. Pt reports passive SI and has thoughts of overdose or cutting but no specific plan. No reported medical or CD issues. A. Voluntary R. 10 / [place] ING DEPARTMENT CHAIRPERSON * Telephone Encounter - Adonay, Rachna - 07/20/2017 2:58 PM CST S. Received clinical from DEC capacity planning engineer at [facility] ED regarding 37 yo female with anxiety and depression B. Pt presents to ED with increasing anxiety and depression. Pt reports she is going through a divorce, two friends recently and 's day was a reminder of a friend who while in service. Pt had taken some days off from work and returned today but was unable to make it through the shift and went home. Pt reports she has had decreased appetite and difficulty sleeping. Pt reports passive SI and has thoughts of overdose or cutting but no specific plan. No reported medical or CD issues. A. Voluntary R. ING DEPARTMENT CHAIRPERSON documented in this encounter Plan of Treatment Not on file documented as of this encounter Visit Diagnoses Not on filedocumented in this encounter Care Teams Compensator Worker Relationship Specialty Start Date End Date No Ref-Primary, Physician PCP - General 07/20/17 01/04/24 System, Provider Not In PCP - General Clinic 01/05/24 documented as of this encounter
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
--- NOTE | 2024-07-14 10:32 | ED.NURSE ---
Pt reports feeling anxious with IV administration of Reglan, pt requested IV to be discontinued.
[2024-07-14 10:33] LABS: PCR FLU A Negative PCR FLU A (Negative); PCR FLU B Negative PCR FLU B (Negative); PCR RSV Negative PCR RSV (Negative); SARS PCR* Negative SARS-CoV-2 (Negative)
[2024-07-14 11:06] LABS: Erythrocyte SedimentationRate* 7 mm/hr (2-20)
[2024-07-14 11:21] VITALS: BP 121/76; PULSE 62; RESP 18; O2SAT 97
[2024-07-14] MEDS: KETOROLAC 15 MG/ML inj IVP (11:21)
== END 2024-07-14 11:54 | disposition home or self-care (01) ==
LOC: ED 10:22
PROVIDERS: Emergency Provider Family Medicine
DX: R51.9 Headache, unspecified (principal); H11.31 Conjunctival hemorrhage, right eye
CPT/HCPCS: 36415; 70450; 70496; 70498; 80048; 83605; 85025; 85651; 86140; 87631; 96365; 96375; 99284; 99285; J1200; J1885; J2765; Q9967

== ENCOUNTER 2024-12-10 20:43 | Emergency (ER) | payer OTHER, SELFPAY ==
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
[2024-12-10 20:47] VITALS: BP 129/89; PULSE 94; RESP 18; TEMP 36.1; O2SAT 99; BMI 35.0
--- NOTE | 2024-12-10 21:22 | CRLHL7_ITS ---
For Patients: As a result of the Century Cures Act, medical imaging exams and procedure reports are released immediately into your electronic medical record. You may view this report before your referring provider. If you have questions, please contact your health care provider. INDICATION: Leg pain and swelling. TECHNIQUE: Ultrasound venous duplex lower left extremity. Compression venous exam was performed using hair-scale, color Doppler, and spectral Doppler analysis. COMPARISON: None. FINDINGS: Deep veins: Sonographic imaging demonstrates the left common femoral, deep femoral, superficial femoral, popliteal, posterior tibial and the contralateral right common femoral veins to be fully compressible with normal color Doppler blood flow. Superficial veins: Greater saphenous vein is fully compressible. No popliteal cyst. IMPRESSION: Normal left lower extremity venous ultrasound, no sign of deep venous thrombosis. Dictated by Too Sidhu MD @ 12/10/2024 10:47:50 PM (Electronically Signed)
--- OUTSIDE RECORDS SUMMARY | 2024-12-10 22:06 | XMS_ITS | Clinical Summary ---
Author Organization [facility] Address [address] [place] [address] Care Team Providers Care Potato Pancake Frier Name Role Phone Found, No Pcp MD [...] for each transition of care or referral. [facility] Allergies Active Allergy Reactions Criticality Noted Date [...] (12/22/2023): Setting: APAP 8-15 cmH20 Supplied by: 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 Abnormal weight gain 05/07/2018 Resolved Problems Problem Noted Date Diagnosed Date Resolved Date Menorrhagia with irregular cycle 11/02/2023 02/02/2024 Other fatigue 07/14/2018 12/07/2019 Tobacco use disorder 09/04/2005 018 Overview (04/28/2017): LW Onset: [id number] ; Tobacco Abuse Immunizations Immunization Administration Dates Next Due Flu Vac (3+ yrs) 07/07/2015,06/11/2009 Flu Vac Preserv Free (3+yrs) 08/16/2007 Fluzone Qiv Multidose Vial 0.25 (6-35 Mos) 07/08 Influenza IIV4 (Quadrivalent) 0.5mL (02249) 06/06,06/09/2014 Influenza, Unspecified Formulation 08/16/2007 Moderna Monovalent [...] 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 Not on file Not [...] MARIA W CAD Routine 08/28/2024 9:30 AM ULTRASOUND SUPERVISOR Encounter for screening for malignant neoplasm of breast, unspecified screening modality CYTOLOGY (PAP) Routine 11/02/2023 1:56 PM ULTRASOUND SUPERVISOR Screening for malignant neoplasm of cervix LIPID PANEL & DIRECT LDL (IF NEEDED) Routine 06/17/2021 8:46 AM CDT Annual physical exam ENDOSCOPY, COLON, SCREENING/DIAGNOSTI C Routine 05/26/2018 11:08 AM CDT Rectal bleeding HIV ANTIBODY Routine 08/25/2013 7:38 AM ULTRASOUND SUPERVISOR Concern about STD in female without diagnosis HEPATITIS C ANTIBODY, WITH REFLEX Routine 08/25/2013 7:38 AM ULTRASOUND SUPERVISOR Concern about STD in female without diagnosis from Last 3 Months or Most Recently Relevant to Health Maintenance Results * (ABNORMAL) MM Mammogram Screening Bilat W 3D Jose Maria W CAD (08/28/2024 9:30 AM ULTRASOUND SUPERVISOR) Anatomical Region Laterality Modality Breast Bilateral Mammography Impressions 08/28/2024 2:12 PM ULTRASOUND SUPERVISOR : ACR BI-RADS Category 0 - Incomplete: Need Additional Imaging Evaluation RECOMMENDATION: Additional Mammographic Images and Possible Ultrasound The results and recommendations of this examination will be communicated to the patient and the imaging center will attempt to schedule any recommended follow up with the patient. As a result of the Cures Act, all medical imaging exams are released immediately to [employer]. You may be viewing this report before our scheduling staff and your referring provider. We will attempt to contact you by phone within one business day of this report to schedule any recommended follow-up exams. If you have questions, please contact your health care provider. Narrative 08/28/2024 2:12 PM ULTRASOUND SUPERVISOR MM MAMMOGRAM SCREENING BILAT W 3D JOSE MARIA W CAD performed on 08/28/24 [facility] Accredited Facility: [place] [address] Compared to: 08/24/2023 MM Mammogram Screening Bilat [...] of breast reduction. us Zabrina Webb APRN MAGNETIC DOCTOR RAD INES melissa Result * PAP Test (11/02/2023 1:56 PM ULTRASOUND SUPERVISOR) Case Report Pap Case: [id number] Authorizing Provider: Flakito Segura MD Collected: 11/02/2023 1356 Ordering Location: [place] [address] Received: 11/02/2023 1636 Obstetrics/Gynec ology First Screen: Kate Hansen Rescreen: Tiarra Blackburn Specimen: Pap Test, Routine, Cervix/Endocervix 11/29/2023 11:04 AM CDT [facility] Pap Specimen Adequacy Satisfactory for evaluation, endocervical/moore sformation zone component present. 11/29/2023 11:04 AM CDT [facility] Pap Interpretation (NILM) Negative for intraepithelial lesion or malignancy. 11/29/2023 11:04 AM CDT [facility] at 1104 CDT Pap Disclaimer The Pap test is a screening test to aid in the detection of cervical and vaginal cancers and their precursor lesions. It is not a diagnostic procedure and should not be used as the sole means of detecting malignancy. Both false-positive and false-negative results may occur. 11/29/2023 11:04 AM CDT [facility] Gross Description The specimen is received in SurePath fixative and properly labeled. 1 Pap-stained SurePath slide is prepared. 11/29/2023 11:04 AM CDT [facility] Embedded Images 11:04 AM CDT [facility] Other Specimen Type ENTIRE ENDOCERVIX / Unknown 11/02/2023 1:56 PM ULTRASOUND SUPERVISOR 11/02/2023 4:36 PM ULTRASOUND SUPERVISOR Comment:LMP: Patient's last menstrual period was 09/13/2023 (exact date). us Flakito Segura MD LAB PATHOLOGY Final Result [facility] [address] [place] [address], [facility] * Lipid Panel - LDLD if Trig Hi [CHOLF] (06/17/2021 8:46 AM CDT) Cholesterol 152 0 - 199 mg/dL 06/17/2021 10:32 AM CDT [facility] Triglyceride 121 <=149 mg/dL 06/17/2021 10:32 AM T [facility] HDL Cholesterol 56 >=40 mg/dL 10:32 AM T [facility] LDL, Calculated 72 <130 mg/dL 10:32 AM T [facility] Non HDL Chol, Calculated 96 <=159 mg/dL 06/17/2021 10:32 AM T [facility] Cholesterol/HDL Ratio 2.7 06/17/2021 10:32 AM [facility] Hours Fasting 10 06/17/2021 10:32 AM [facility] Blood Venipuncture / Unknown 06/17/2021 8:46 AM CDT 06/17/2021 8:55 AM CDT Rosalia Chavez APRN, CNM LAB_1 Final Result [facility] [address] [place] [address], [facility] [phone] * Colonoscopy (05/26/2018 11:08 AM CDT) Anatomical [...] physician PRN. Procedure Code(s): --- Professional --- 83910, Colonoscopy, flexible; with removal of tumor(s), polyp(s), or other lesion(s) by snare technique Diagnosis Code(s): --- Professional --- D12.2, Benign neoplasm of ascending colon K62.5, Hemorrhage of anus and rectum K62.89, Other specified diseases of anus and rectum CPT copyright 2016 [employer]. All rights reserved. The codes documented in this report are preliminary and upon winch runner review may be revised to meet current [...] physician PRN. Procedure Code(s): --- Professional --- 23116, Colonoscopy, flexible; with removal of tumor(s), polyp(s), or other lesion(s) by snare technique Diagnosis Code(s): --- Professional --- D12.2, Benign neoplasm of ascending colon K62.5, Hemorrhage of anus and rectum K62.89, Other specified diseases of anus and rectum CPT copyright 2016 [employer]. All rights reserved. The codes documented in this report are preliminary and upon winch runner review may be revised to meet current compliance requirements. Candiod Ruffin MD 05/26/2018 12:07:07 PM Number of Addenda: 0 Note Initiated On: 05/26/2018 11:08 AM Endoscopy Report us Fina Diaz MD ET GI PROCEDURE ORDERABLES F inal Result * HIV ANTIBODY (08/25/2013 7:38 AM ULTRASOUND SUPERVISOR) HIV 1/HIV 2 Non-React Non-Reacti ve HP CONVERSION 08/25/2013 7:38 AM ULTRASOUND SUPERVISOR 08/25/2013 11:46 AM ULTRASOUND SUPERVISOR Narrative Transcriptions 10/16/2016 12:20 AM CSTNotes Recorded by Alexsander Stoddard MD on 08/28/2013 at 7:39 AMLetter sent us Alexsander Stoddard MD LAB_1 Final Result HP CONVERSION * Hepatitis C Antibody, with Reflex (08/25/2013 7:38 AM ULTRASOUND SUPERVISOR) Hepatitis C Antibody Non-React Non-Reacti ve HP CONVERSION 08/25/2013 7:38 AM ULTRASOUND SUPERVISOR 08/25/2013 11:46 AM ULTRASOUND SUPERVISOR Narrative Transcriptions 10/16/2016 12:21 AM CSTNotes Recorded by Alexsander Stoddard MD on 08/28/2013 at 7:39 AMLetter sent Alexsander Stoddard MD LAB_1 Final Result HP CONVERSION from Last 3 Months or Most Recently Relevant to Health Maintenance Insurance [employer] Care Teams Potato Pancake Frier Relationship Specialty Start Date End Date Found, No Pcp, [address] [place] [address] PCP - General 11/28/21
--- NOTE | 2024-12-10 22:54 | ED_ITS ---
HPI - Extremity Injury (Lower) General Date Seen: 12/10/24 Chief Complaint: Extremity Pain/Injury, Lower Stated Complaint: L calf pain Time Seen by Provider: 12/10/24 21:06 Source: patient Mode of arrival: ambulatory Limitations: no limitations History of Present Illness HPI Narrative: Patient is a very nice 44-year-old female who presents here for evaluation of left calf pain she has had for approximate 2-3 weeks. She describes getting worse and not better she has been massaging it, and standing she finds that moving is a little bit worse, she started hormone replacement 1 month ago, and she has had reduced sleeping cause of the pain she has not taken any ibuprofen Tylenol for the discomfort. No past history of any DVTs, pulmonary embolism or other clotting disorders within her or her family. Denies any chest pain shortness of breath, lightheadedness or any other symptoms no recent long trips. Or other issues. Related Data Home Medications ?Medication ?Instructions ?Recorded ?Confirmed thyroid (pork) 120 mg tablet 120 mg PO DAILY 12/06/22 04/10/24 ([place] Thyroid) thyroid (pork) 30 mg tablet 30 mg PO DAILY 12/06/22 04/10/24 ([place] Thyroid) Allergies Allergy/AdvReac Type Severity Reaction Status Date / Time No Known Drug Allergies Allergy Verified 07/14/24 09:52 Review of Systems Status of ROS: Reports: 10 or more systems reviewed and unremarkable except as noted in History and below [facility] Medical History Staph infection ?B95.8 - Unspecified staphylococcus as the cause of diseases classified elsewhere (ICD-10) Social History Smoking Status: Never smoker Do you use any of these nicotine containing products: None How often do you have a drink containing alcohol: never How often do you have six or more drinks on one occasion: Never AUDIT-C Alcohol total score: 0 Non-prescribed substance use: denies use Exam Narrative: Exam Narrative: On examination she is in no apparent distress she is seen in room 4, she has some tenderness on her left calf on palpation I do not see any redness swelling or any ropy cord suggestive of a superficial or deep vein thrombosis. Her Homans sign is mildly positive. Tenderness along her Achilles, her DP and posterior tibial and popliteal pulses are normal, no significant edema is noted, normal muscle bulk bilaterally her chest is good air entry bilaterally no wheezing crackles noted heart sounds are normal. Const: Vital Signs, click to edit/add: Vital Signs - 24 hr 12/10/24 20:47 Temperature 97.0 F L Pulse Rate [Left P ulse Oximeter] 94 Respiratory Rate 18 Blood Pressure [Ri ght Upper Arm] 129/89 Pulse Oximetry 99 Oxygen Delivery Me thod Room Air Documenting provider has reviewed patient's vital signs: yes Course Vital Signs Vital signs: Initial Vital Signs Temperature 97.0 F L 12/10/24 20:47 Temperature Source Temporal Artery Scan 12/10/24 20:47 Pulse Rate 94 12/10/24 20:47 Pulse Rhythm Regular 12/10/24 20:47 Respiratory Rate 18 12/10/24 20:47 Blood Pressure 129/89 12/10/24 20:47 Blood Pressure Mean 102 12/10/24 20:47 Blood Pressure Position Sitting 12/10/24 20:47 Pulse Oximetry 99 12/10/24 20:47 Oxygen Delivery Method Room Air 12/10/24 20:47 Vital Signs Temperature 97.0 F L 12/10/24 20:47 Pulse Rate 94 12/10/24 20:47 Respiratory Rate 18 12/10/24 20:47 Blood Pressure 129/89 12/10/24 20:47 Pulse Oximetry 99 12/10/24 20:47 Oxygen Delivery Method Room Air 12/10/24 20:47 Temperature 97.0 F L 12/10/24 20:47 Pulse Rate 94 12/10/24 20:47 Respiratory Rate 18 12/10/24 20:47 Blood Pressure 129/89 12/10/24 20:47 Pulse Oximetry 99 12/10/24 20:47 Oxygen Delivery Method Room Air 12/10/24 20:47 MDM - Extremity Injury (Lower) MDM Narrative Medical decision making narrative: Consideration of a DVT or superficial venous thrombosis. verses muscle injury verses Armendariz cyst verses other issues. We will go ahead and do an ultrasound, D-dimer. Medical Records Attestation: I reviewed the patient's medical records. Lab Data Attestation: I reviewed the patient's lab results. Labs: Lab Results 12/10/24 Range/Units 21:37 D-Dimer Quant (PE/DVT) 0.10 (0.00-0.50) ug/ml Imaging Data Left leg ultrasound: Radiologist's impression: [place] [address] Diagnostic Imaging Report Patient: Nicky Stanford MR#: [id number] : 1980 Acct:[id number] Loc: ED Service Date: 12/10/[address]: Ordering Physician: Eric Wells M.D. Date of Service: 12/10/24 Procedure(s): US venous LE LT Accession Number(s): [id number] cc: Provider,Not a Local; Eric Wells M.D.~ For Patients: As a result of the Cures Act, medical imaging exams and procedure reports are released immediately into your electronic medical record. You may view this report before your referring provider. If you have questions, please contact your health care provider. INDICATION: Leg pain and swelling. TECHNIQUE: Ultrasound venous duplex lower left extremity. Compression venous exam was performed using hair-scale, color Doppler, and spectral Doppler analysis. COMPARISON: None. FINDINGS: Deep veins: Sonographic imaging demonstrates the left common femoral, deep femoral, superficial femoral, popliteal, posterior tibial and the contralateral right common femoral veins to be fully compressible with normal color Doppler blood flow. Superficial veins: Greater saphenous vein is fully compressible. No popliteal cyst. IMPRESSION: Normal left lower extremity venous ultrasound, no sign of deep venous thrombosis. Dictated by Too Sidhu MD @ 12/10/2024 10:47:50 PM (Electronically Signed) Discharge Plan Discharge Clinical Impression: Pain of left calf Patient Disposition: Home, Self-Care Condition: Stable Instructions: Leg Pain (ED) Additional Instructions: Home rest use of ibuprofen 100 mg 3 times a day, ice plus or minus heat, follow- up with PT if ongoing signs symptoms, but ultrasound was negative for any DVT and your blood tests for DVT was also negative. PT is helpful for teaching exercises to stretch this area, if it is a partially tore muscle can take up to 6 weeks to 3 months to heal. Activity Level: Light activity Discharge Diet: Regular Prescriptions: No Action thyroid (pork) [[place] Thyroid] 120 mg tablet 120 mg PO DAILY thyroid (pork) [[place] Thyroid] 30 mg tablet 30 mg PO DAILY Follow Up/Referrals: Provider,Not a Local [Primary Care Provider] - Stand Alone Forms: [employer] Info Instructions
== END 2024-12-10 23:04 | disposition home or self-care (01) ==
PROVIDERS: Emergency Provider Family Medicine
DX: M79.662 Pain in left lower leg (principal)
CPT/HCPCS: 36415; 85379; 93971; 99284